=== PATIENT | male | born 1945 | race Caucasian/White ===

== ENCOUNTER → 2019-12-06 | Outpatient (CLI) | payer SELFPAY ==
[~2019-12-06] MED LIST: ALBU.083IS IH; ALBU90OI6 INH; CODE30 PO; CYCL10 PO; DIAZ5 PO; DOCU100 PO; GUAI200 PO; HYDCHL12.5 PO; ISOMON60ER PO; LISI5 PO; MULVITMINE PO; OMEP20ER PO; PHENO60 PO
== END ==
LOC: LAB SHORT 18:52 → LAB 18:52
DX: L08.9 Local infection of the skin and subcutaneous tissue, unspecified (principal)
CPT/HCPCS: 87070; 87077; 87186; 87205